=== PATIENT | female | born 1945 | race Caucasian/White ===

== ENCOUNTER 2022-12-24 10:34 | Inpatient (IN) | payer OTHER, BC ==
[~2022-12-24] VITALS: Ht 165.1 cm; Wt 96.4 kg
[2022-12-24 10:36] VITALS: BP_SYST 118
--- NOTE | 2022-12-24 10:36 | NUR ---
Patient to ER bed 07 to gown for evaluation. Side rails up. Report given to KALYN PURCELL.
--- NOTE | 2022-12-24 10:40 | NUR ---
ER at bedside examining patient.
[2022-12-24] MEDS ORDERED: DIPHENHYDRAMINE INJ 50 MG/ML VIAL IVP ONE (10:45)
[2022-12-24] MEDS ORDERED: methylPREDNISolone SOD SUCC/PF 62.5 MG/ML VIAL IVP ONE (10:45)
[2022-12-24 11:23] LABS: BASOPHILS # (AUTO) 0.1 K/uL (0.0-0.2); BASOPHILS % (AUTO) 0.9 % (0.0-2.0); EOSINOPHILS # (AUTO) 0.1 K/uL (0.0-0.4); EOSINOPHILS % (AUTO) 0.9 % (0.0-4.0); HEMOGLOBIN 10.4 g/dL (12.0-16.0); LYMPHOCYTES # (AUTO) 0.6 K/uL (1.0-5.5); LYMPHOCYTES % (AUTO) 8.6 % (20.5-51.5); MEAN CORPUSCULAR HEMOGLOBIN 33 pg (27-31); MEAN CORPUSCULAR HGB CONC 34 % (32-36); MEAN CORPUSCULAR VOLUME 97 fL (79.0-98.0); MONOCYTES # (AUTO) 0.7 K/uL (0.0-1.0); MONOCYTES % (AUTO) 10.8 % (1.7-9.3); NEUTROPHILS # (AUTO) 5.2 K/uL (1.8-7.7); NEUTROPHILS % (AUTO) 78.8 % (40.0-70.0); PLATELET COUNT (AUTO) 177 K/uL (130-430); RED BLOOD CELL COUNT(AUTO) 3.18 MIL/uL (4.2-6.2); RED CELL DISTRIBUTION WIDTH 18.9 % (9.0-15.0); WHITE BLOOD COUNT (AUTO) 6.6 K/uL (4.8-10.8)
[2022-12-24 11:25] LABS: ANION GAP 9 (5-15); CALCIUM 8.7 mg/dL (8.4-11.0); CHLORIDE 105 mmol/L (98-107); CREATININE 1.36 mg/dL (0.55-1.30); GLUCOSE 130 mg/dL (70-99); UREA NITROGEN, BLOOD 21 mg/dL (8-21)
[2022-12-24 11:33] LABS: ALANINE AMINOTRANSFERASE 35 U/L (12-78); ASPARTATE AMINOTRANSFERASE 49 U/L (10-37); TOTAL BILIRUBIN 1.5 mg/dL (0.0-1.0)
--- NOTE | 2022-12-24 12:13 | NUR ---
Admit bed requested Patient will be admitted to care of Dr. Luis Miguel SOLORIO. Admitted to TELEMETRY unit. Diagnosis CHF EXACERBATION Inpatient (Yes or No) Y Observation (Yes or No) N Orientation concerns or request close to nursing station (Yes or No) N Covid Status NEGATIVE On vent or bipap N Isolation requirements N Needs a sitter N From Home (Yes or if No enter name of facility) N, [facility] Requires Dialysis (Yes or No) N Med Rec Completed (Yes of No) Y
--- NOTE | 2022-12-24 15:51 | NUR ---
Patient will be admitted to care of [facility]. Admitted to TELE unit. Will go to room 113A. Belongings list completed. Complete and up to date summary report printed. SBAR report to JAZZY EDOUARD.
--- NOTE | 2022-12-24 16:30 | NUR ---
Nurse Notes: Patient admitted to Tele. Report taken from Eric in ER over telephone. Patient stable, bed in lowest position, call light in reach.
--- NOTE | 2022-12-24 16:34 | NUR ---
Business Planning Director re: homelessness spoke with RNs Claribel and Eric regarding the patient's recent consult regarding homelessness. Nurses advised that the patient is not homeless and resides in a [facility]. I requested a code correction, in which Claribel indicated she would complete do a code correction. At this time, there is nothing needs from drug abuse social worker as the patient is not homeless.
--- NOTE | 2022-12-24 17:26 | NUR ---
Nurse Notes: Patient put on Purewick at 17:25PM.
[2022-12-24 18:50] VITALS: BP_SYST 128
[2022-12-24] MEDS ORDERED: HYDROcodone/ACETAMIN 5-325 MG TAB (NORCO/ VICODIN) PO PRN (19:15)
[2022-12-24] MEDS ORDERED: NALOXONE HCL 0.4 MG/ML AMP (NARCAN) IVP PRN (19:15)
[2022-12-24 19:55] VITALS: BP_SYST 128
--- NOTE | 2022-12-24 20:00 | NUR ---
RECEIVED PT SITTING UP IN BED, AOX3, EVEN AND UNLABORED BREATHING, PT ON 4L OF O2 VIA N/C, VSS, BEDREST, TOLERATING CARDIAC DIET, PUREWICK CONNECTED TO REGULAR SUCTION AND DRAINING YELLOW URINE, BLE NOTED WITH PITTING EDEMA +2, DISCOLORATION OF LEFT CALF AND BLE, ALSO NOTED SKIN TEAR ON PT LFA, PT STATED IT WAS FROM A FALL AT THE ASSISTED HOME ABOUT 2 DAYS AGO. SALINE LOCK TO RAC INTACT AND PATENT, NO COMPLAIN FROM PT ATT, WILL CONTINUE WITH POC
[2022-12-24] MEDS: CARVEDILOL 12.5 MG TABLET (COREG) PO SCH (20:39)
[2022-12-24] MEDS: ENOXAPARIN SODIUM 30 MG/0.3 ML SYRINGE SUBCUT SCH (20:40)
[2022-12-24] MEDS: FUROSEMIDE 20 MG/2 ML VIAL IVP SCH (20:40)
[2022-12-25 00:37] VITALS: BP_SYST 124
[2022-12-25] MEDS: LEVOTHYROXINE SODIUM 0.05 MG TABLET PO SCH (06:06)
--- NOTE | 2022-12-25 06:59 | NUR ---
PT LYING IN BED, AOX3, EVEN AND UNLABORED BREATHING, PT ON 4L OF O2 VIA N/C, VSS, BEDREST, TOLERATING CARDIAC DIET, PUREWICK CONNECTED TO REGULAR SUCTION AND DRAINING YELLOW URINE, NOCHANGES DURING SHIFT, DAILY WT TAKEN AND RECORDED, . SALINE LOCK TO RAC INTACT AND PATENT, NO COMPLAIN FROM PT ATT, WILL ENDORSE HARPREET PURCELL
--- NOTE | 2022-12-25 07:49 | NUR ---
OPENING NOTES: PATIENT IN BED A/OX 4. NO S/S OF DISTRESS OR PAIN REPORTED. BREATHING IS EVEN AND UNLABORED ON 4L NC 97%. EDUCATED PATIENT ON USE OF CALL LIGHT SHOULD SHE NEED ANYTHING. VITAL SIGNS STABLE. PUREWICK IS IN WORKING ORDER AND CANISTER BEEN EMPTIED. ALL NEEDS MET AT THIS TIME, SAFETY CHECKS MADE AND CALL LIGHT WITHIN REACH.
[2022-12-25 08:00] VITALS: BP_SYST 120
[2022-12-25] MEDS: FUROSEMIDE 20 MG/2 ML VIAL IVP SCH ×2 (08:17→21:00)
[2022-12-25] MEDS: DOCUSATE SODIUM 100 MG CAPSULE PO SCH (08:18)
[2022-12-25] MEDS: CELECOXIB 200 MG CAPSULE PO SCH (08:18)
[2022-12-25] MEDS: FAMOTIDINE 20 MG TABLET PO SCH (08:18)
[2022-12-25] MEDS: CARVEDILOL 12.5 MG TABLET (COREG) PO SCH ×2 (08:19→21:12)
--- NOTE | 2022-12-25 09:42 | NUR ---
WOUND EVALUATION: Wound Consult received from Dr. Bergman. Thank you, Dr. Mims, for the consult. Patient received in a Diana Bed with low air-loss mattress, awake, alert, and oriented. Patient is able to turn with minimal assistance. Anthony Score is a 16. Past Medical History: pacemaker placement, hypertension, hypothyroidism, degenerative joint disease, congestive heart failure. Recent Labs: WBC 6.6, RBC 3.18, Hgb 10.4, Hct 177, potassium 4.3, glucose 130, albumin 3, calcium 8.7. Microbiology: pending fungal culture. Intrinsic factors that delay wound healing: congestive heart failure, hypertension. Extrinsic factors that delay wound healing: Decreased mobility, degenerative joint disease. Wound Assessment: 1. Left Medial Forearm Linear multiple abrasions, present on admission. Tissue is 100% red, hardened forming scabs. No odor, no drainage. Janie-wound intact. Measures 5 cm x 1 cm, collectively. Recommend: Leave open to air. 2. Left Anterior Lower Extremity, on Kiran Area of intact light pink shiny tissue, present on admission. No odor, no drainage. Skin is warm to touch. Surrounding tissue intact. 3. Left Posterior Lower Extremity, on Calf Old healed wound, present on admission. Tissue with 100% light brown pigmentation. No odor, no drainage. Surrounding tissue intact. Recommend: Reposition patient every 2 hours with pillow support and off-load pressure areas with pillows for pressure re-distribution. Offload, elevate and float bilateral heels with pillows. Perform skin care and monitor skin integrity Q shift. Use moisture barrier cream on buttocks and other moisture susceptible areas QID and as needed for soiling.
[2022-12-25 10:19] LABS: BASOPHILS % (AUTO) 0.1 % (0.0-2.0); HEMATOCRIT 32.5 % (36-48); HEMOGLOBIN 10.6 g/dL (12.0-16.0); LYMPHOCYTES # (AUTO) 0.4 K/uL (1.0-5.5); LYMPHOCYTES % (AUTO) 6.7 % (20.5-51.5); MEAN CORPUSCULAR HEMOGLOBIN 32 pg (27-31); MEAN CORPUSCULAR HGB CONC 33 % (32-36); MEAN CORPUSCULAR VOLUME 99 fL (79.0-98.0); MONOCYTES # (AUTO) 0.6 K/uL (0.0-1.0); MONOCYTES % (AUTO) 9.8 % (1.7-9.3); NEUTROPHILS # (AUTO) 5.1 K/uL (1.8-7.7); NEUTROPHILS % (AUTO) 83.4 % (40.0-70.0); PLATELET COUNT (AUTO) 171 K/uL (130-430); RED BLOOD CELL COUNT(AUTO) 3.29 MIL/uL (4.2-6.2); RED CELL DISTRIBUTION WIDTH 19.2 % (9.0-15.0); WHITE BLOOD COUNT (AUTO) 6.1 K/uL (4.8-10.8)
[2022-12-25 10:30] LABS: ANION GAP 8 (5-15); CALCIUM 8.2 mg/dL (8.4-11.0); CHLORIDE 103 mmol/L (98-107); CREATININE 1.41 mg/dL (0.55-1.30); GLUCOSE 197 mg/dL (70-99); UREA NITROGEN, BLOOD 25 mg/dL (8-21)
[2022-12-25 10:35] LABS: ALANINE AMINOTRANSFERASE 51 U/L (12-78); ASPARTATE AMINOTRANSFERASE 42 U/L (10-37); TOTAL BILIRUBIN 0.8 mg/dL (0.0-1.0)
[2022-12-25 11:28] VITALS: BP_SYST 93
--- NOTE | 2022-12-25 12:00 | NUR ---
rounds: pt in bed eating lunch. no s/s of distress or pain reported. breathing is even and unlabored on 2l nc 97. educated pt about leaving nasal cannula on. verbalized understanding. all need met at this time, safety checks made and call light within reach.
[2022-12-25 15:22] VITALS: BP_SYST 103
--- NOTE | 2022-12-25 15:36 | NUR ---
notes: pt requested denture cream, we do not have any, however the head of [employer] had a brand new tube and offered it to the patient. its the same brand the patient uses too. The patient was happy to have her dentures cleaned and fresh denture cream applied.
--- NOTE | 2022-12-25 18:06 | NUR ---
CLOSING NOTES: PATIENT IN BED A/OX 4. NO S/S OF DISTRESS OR PAIN REPORTED. BREATHING IS EVEN AND UNLABORED ON 2L NC 97%. EDUCATED PATIENT ON USE OF CALL LIGHT SHOULD SHE NEED ANYTHING. VITAL SIGNS STABLE. PUREWICK IS IN WORKING ORDER AND CANISTER BEEN EMPTIED. ALL NEEDS MET AT THIS TIME, SAFETY CHECKS MADE AND CALL LIGHT WITHIN REACH. WILL ENDORSE TO FINAL ASSEMBLER BOAT NURSE.
[2022-12-25 20:00] VITALS: BP_SYST 95
--- NOTE | 2022-12-25 21:04 | NUR ---
DR. CAMPOS, BP UPDATE Called and s/w Dr. Campos. Informed patient's BP is trending low; 95/69, repeat 105/68; and that she has two BP meds (Carvedilol and Lasix). He said hold Lasix, but ok to give Carvedilol, TORB.
[2022-12-25] MEDS: ENOXAPARIN SODIUM 30 MG/0.3 ML SYRINGE SUBCUT SCH (21:12)
--- NOTE | 2022-12-25 22:50 | NUR ---
TRANSFER OF CARE Received report from JAZZY Muniz. Patient is awake, resting in bed, using her phone. Introduced self, she has no needs at this time. No distress, nonlabored breathing on 2L NC. Side rails up, call light w/in reach and bed alarm is on.
[2022-12-26 00:28] VITALS: BP_SYST 102
[2022-12-26 06:03] LABS: BASOPHILS % (AUTO) 0.1 % (0.0-2.0); EOSINOPHILS % (AUTO) 0.6 % (0.0-4.0); HEMOGLOBIN 10.6 g/dL (12.0-16.0); LYMPHOCYTES # (AUTO) 0.5 K/uL (1.0-5.5); LYMPHOCYTES % (AUTO) 8.6 % (20.5-51.5); MEAN CORPUSCULAR HEMOGLOBIN 33 pg (27-31); MEAN CORPUSCULAR HGB CONC 33 % (32-36); MEAN CORPUSCULAR VOLUME 99 fL (79.0-98.0); MONOCYTES # (AUTO) 0.7 K/uL (0.0-1.0); MONOCYTES % (AUTO) 10.3 % (1.7-9.3); NEUTROPHILS # (AUTO) 5.1 K/uL (1.8-7.7); NEUTROPHILS % (AUTO) 80.4 % (40.0-70.0); PLATELET COUNT (AUTO) 171 K/uL (130-430); RED BLOOD CELL COUNT(AUTO) 3.25 MIL/uL (4.2-6.2); RED CELL DISTRIBUTION WIDTH 18.7 % (9.0-15.0); WHITE BLOOD COUNT (AUTO) 6.3 K/uL (4.8-10.8)
[2022-12-26 06:31] LABS: ALANINE AMINOTRANSFERASE 49 U/L (12-78); ALBUMIN 2.9 g/dL (3.4-4.8); ANION GAP 8 (5-15); ASPARTATE AMINOTRANSFERASE 31 U/L (10-37); CALCIUM 8.5 mg/dL (8.4-11.0); CHLORIDE 103 mmol/L (98-107); CHOLESTEROL 132 mg/dL (<200); CREATININE 1.45 mg/dL (0.55-1.30); GLUCOSE 102 mg/dL (70-99); HDL CHOLESTEROL 65 mg/dL (>55); TOTAL BILIRUBIN 0.7 mg/dL (0.0-1.0); TRIGLYCERIDES 34 mg/dL (30-150); UREA NITROGEN, BLOOD 32 mg/dL (8-21)
[2022-12-26] MEDS: LEVOTHYROXINE SODIUM 0.05 MG TABLET PO SCH (07:33)
--- NOTE | 2022-12-26 07:50 | NUR ---
OPENING NOTES: RECEIVED BEDSIDE SBAR FROM PM SHIFT NURSE RN. NO S/S OF ANY DISTRESS, NON LABOR BREATHING, PATIENT RESTING IN BED WITH EYES CLOSED, BED AT LOW AND LOCKED POSITION, CALL LIGHT IN REACH IV INTACT WILL CONT TO MONITOR PATIENT PER ORDERS.
[2022-12-26 08:27] LABS: FREE T4 (FREE THYROXINE) 1.3 ng/dL (0.6-1.6); THYROID STIMULATING HORMONE 1.22 uIu/mL (0.34-4.82)
[2022-12-26 08:56] VITALS: BP_SYST 98
[2022-12-26] MEDS ORDERED: FURO-150 PO (08:59)
[2022-12-26] MEDS ORDERED: CARV12.548 PO (08:59)
[2022-12-26] MEDS ORDERED: CELE200C PO (08:59)
[2022-12-26] MEDS ORDERED: HYDR-3917 PO (08:59)
[2022-12-26] MEDS ORDERED: DOCU-156 PO (08:59)
[2022-12-26] MEDS ORDERED: LEVO25TA7 PO (08:59)
[2022-12-26] MEDS ORDERED: MIDO5TAB4 PO (08:59)
[2022-12-26] MEDS ORDERED: POTA8TAB66 PO (08:59)
[2022-12-26] MEDS ORDERED: FAMO20TA8 PO (08:59)
[2022-12-26] MEDS: CARVEDILOL 12.5 MG TABLET (COREG) PO SCH ×2 (09:00→22:42)
[2022-12-26] MEDS: FUROSEMIDE 20 MG/2 ML VIAL IVP SCH ×2 (09:00→21:00)
[2022-12-26] MEDS: FAMOTIDINE 20 MG TABLET PO SCH (09:20)
[2022-12-26] MEDS: CELECOXIB 200 MG CAPSULE PO SCH (09:20)
[2022-12-26] MEDS: DOCUSATE SODIUM 100 MG CAPSULE PO SCH (09:20)
--- NOTE | 2022-12-26 09:24 | NUR ---
HELD LAXIS IV AND COREG PO DUE TO LOW BP : 98/60 JAZZY CIFUENTES AWARE
[2022-12-26 11:03] VITALS: BP_SYST 86
--- NOTE | 2022-12-26 14:15 | NUR ---
patient from [facility]. spoke with Anisha the nurse there who states the patient has a CG for a few hours per week for bathing and a med tech for medication administration. Pt does not have a scale to manage her CHF closely. Anisha states if the MD puts in daily weights in discharge instructions they will weigh her daily. If she needs HH for PT they use [facility] who will manage her PT. MIR has transportation back to facility available; RN to call in the morning of discharge to arrange.
[2022-12-26 15:41] VITALS: BP_SYST 95
--- NOTE | 2022-12-26 18:45 | NUR ---
CLOSING NOTES: PATIENT REMAINED STABLE THOUGHT THE DAY, NO S/S OF ANY DISTRESS, RESTING WELL IN BED WATCHING TV, WILL GIVE PM SHIFT NURSE BEDSIDE SBAR.
[2022-12-26] MEDS: ENOXAPARIN SODIUM 30 MG/0.3 ML SYRINGE SUBCUT SCH (22:00)
[2022-12-27 00:27] VITALS: BP_SYST 99
[2022-12-27 04:18] VITALS: BP_SYST 101
[2022-12-27] MEDS: LEVOTHYROXINE SODIUM 0.05 MG TABLET PO SCH (06:39)
--- NOTE | 2022-12-27 07:02 | NUR ---
PT IS IN LOW POSITION BED WITH BREAKS SET. SLEEPING ON AND OFF. PT IS RESTING COMFORTABLY
[2022-12-27 08:00] VITALS: BP_SYST 103
--- NOTE | 2022-12-27 08:00 | NUR ---
Opening Notes Patient is AOx4. NO ss of distress noted. Breathing is even and nonlabored, on 2 L O2 via NC. No SOB noted. Patient denies pain. No facial grimace noted. Vital signs obtained, as documented. IV patent. patient is eating breakfast. Bed is locked, alarm on, and at lowest position. call light within reach.
[2022-12-27] MEDS: CARVEDILOL 12.5 MG TABLET (COREG) PO SCH (09:00)
[2022-12-27] MEDS: DOCUSATE SODIUM 100 MG CAPSULE PO SCH (10:09)
[2022-12-27] MEDS: CELECOXIB 200 MG CAPSULE PO SCH (10:09)
[2022-12-27] MEDS: FAMOTIDINE 20 MG TABLET PO SCH (10:12)
[2022-12-27 12:00] VITALS: BP_SYST 101
--- NOTE | 2022-12-27 12:00 | NUR ---
notes Patient is eating lunch. Was given bed bath earlier and linens changed. No ss of distress noted. Patient stable. All safety precautions in place and call light within reach.
[2022-12-27] MEDS: FUROSEMIDE 20 MG/2 ML VIAL IVP SCH (12:14)
--- NOTE | 2022-12-27 14:00 | NUR ---
notes patient has been cleaned and repositioned. No distress noted. Patient is comfortable. Denies pain. All safety precautions in place and call light within reach.
[2022-12-27 16:00] VITALS: BP_SYST 103
--- NOTE | 2022-12-27 16:12 | NUR ---
notes patient is resting, awake, and watching TV. No ss of distress noted. Patient is comfortable. denies pain. Bed is locked, alarm on, and at lowest position. call light within reach.
--- NOTE | 2022-12-27 16:38 | NUR ---
Patient accepted at [facility] room 36B Number for report [phone].[facility] is on will call [phone].
--- NOTE | 2022-12-27 16:58 | NUR ---
WILL CALL STATUS WITH [facility] WAS ACTIVATED. COAL GASIFICATION TECHNICIAN TIME GOING TO JENNY MCLEOD, RM B36 WLL BE AT 2030. SPOKE TO EDITH.
[2022-12-27 17:44] VITALS: BP_SYST 103
--- NOTE | 2022-12-27 18:12 | NUR ---
Closing notes/ report patient is eating dinner. No ss of distress noted. Patient is aware of transfer to [facility]. Consent signed. No ss of distress noted. Breathing is even and nonlabored, on 2 L o2 via NC. Patient denies pain. NO SOB noted. Patient is stable. Bed is locked, alarm on, and at lowest position. Call light within reach. Called [facility] at [phone] and spoke to JAZZY Gordon . Report given. tool grinder set up operator gear time [id number]
--- NOTE | 2022-12-27 19:35 | NUR ---
OPENING NOTE PT IS SITTING IN BED WITH EYES OPEN. NO APPARENT DISTRESS NOTED AT THIS TIME. FALL AND SAFETY PRECAUTIONS IN PLACE. VSS. CALL LIGTH WITHIN REACH. ALL NEEDS MET AT THIS TIME.
--- NOTE | 2022-12-27 21:37 | NUR ---
PT DISCHARGES PT PICKED UP BY [facility]. VSS ALL PAPERWORK GIVEN AND SIGNS. ALL BELONGINGS TAKEN WITH PATIENT. IV REMOVED, TIP INTACT.
== END 2022-12-27 21:46 | DRG 291 ==
LOC: SED 10:34 → STU 12:09 → SMU 15:17 → STU 15:54
PROVIDERS: ADMIT Family Medicine; ATTEND Family Medicine
DX: I11.0 Hypertensive heart disease with heart failure (principal); I50.43 Acute on chronic combined systolic (congestive) and diastolic (congestive) heart failure; I48.20 Chronic atrial fibrillation, unspecified; M17.0 Bilateral primary osteoarthritis of knee; E03.9 Hypothyroidism, unspecified; E66.9 Obesity, unspecified; D64.9 Anemia, unspecified; Z79.01 Long term (current) use of anticoagulants; Z79.899 Other long term (current) drug therapy; I25.2 Old myocardial infarction; Z68.35 Body mass index [BMI] 35.0-35.9, adult; Z95.810 Presence of automatic (implantable) cardiac defibrillator
CPT/HCPCS: 36415; 71045; 73560-TC; 80053; 80061; 83735; 83880; 84439; 84443; 84484; 85025; 87101; 93005; 93306; 96374; 96375; 97110-GP; 97530-GP; 99285; G0378; J1200; J1650; J1940; J2930